=== PATIENT | male | born 1970 | race African-American/Black ===

== ENCOUNTER 2020-09-03 00:18 | Observation (INO) ==
[2020-09-03] MEDS ORDERED: 0.9 % Sodium Chloride 1,000 ML IVC ONE (00:54)
[2020-09-03] MEDS ORDERED: Ondansetron 4 MG/2 ML VIAL IVP ONE ×3 (00:58→04:34)
[2020-09-03 01:06] LABS: Basophils % 0.3 %; Eosinophils # 0.4 K/mcL (0.0-0.6); Eosinophils % 3.5 %; Hematocrit 44.4 % (37.5-50.1); Hemoglobin 14.1 g/dL (12.9-16.9); Immature Granulocytes % 0.5 % (0-4); Lymphocytes # 2.3 K/mcL (0.6-4.6); Mean Corpuscular HGB Conc 31.8 g/dL (31.6-35.5); Mean Corpuscular Hemoglobin 26.4 pg (28.0-33.3); Mean Platelet Volume 10.7 fL (9.4-12.4); Monocytes # 0.5 K/mcL (0.0-1.3); Monocytes % 4.7 %; Neutrophils # 7.6 K/mcL (1.6-8.9); Platelet Count 265 K/mcL (140-400); Red Blood Count 5.35 M/mcL (4.19-5.50); Red Cell Distribution Width 14.2 % (11.5-14.5); White Blood Count 10.8 K/mcL (4.3-11.1)
[2020-09-03 01:15] LABS: Alanine Aminotransferase 10 Units/L (7-52); Albumin 4.2 g/dL (3.5-5.7); Albumin/Globulin Ratio 1.4 (1.1-2.2); Alkaline Phosphatase 60 Units/L (34-104); Aspartate Amino Transferase 12 Units/L (13-39); BUN/Creatinine Ratio 12 (6-26); Bilirubin,Direct 0.1 mg/dL (0.0-0.2); Bilirubin,Indirect 0.4 mg/dL (0.0-1.0); Bilirubin,Total 0.5 mg/dL (0.3-1.0); Blood Urea Nitrogen 13 mg/dL (6-20); Calcium 9.3 mg/dL (8.6-10.3); Carbon Dioxide 22 mEq/L (23-29); Chloride 109 mEq/L (98-107); Globulin 3.1 g/dL (2.4-3.5); Glucose 168 mg/dL (70-105); Lipase 53 Units/L (11-82); Osmolality,Calculated 298 (280-300); Potassium 3.5 mEq/L (3.5-5.1); Sodium 142 mEq/L (136-145); Total Protein 7.3 g/dL (6.4-8.9); eGFR For African Americans > 60 (> 60); eGFR For Non-African Americans > 60 (> 60)
[2020-09-03 01:28] LABS: Bacteria,Urine Few per hpf (None-Few); Bilirubin,Urine Negative (Negative); Blood,Urine Small (Negative); Clarity,Urine Clear (Clear); Color,Urine Yellow (Yellow); Glucose,Urine (UA) 50 mg/dL (Normal); Hyaline Casts,Urine Few per lpf (None Seen); Ketones,Urine Negative (Negative); Leukocyte Esterase,Urine Negative (Negative); Mucus,Urine Many per lpf (None-Few); Nitrite,Urine Negative (Negative); PH,Urine 5.5 pH Units (5.0-8.0); Protein,Urine 50 mg/dL (Neg-Trace); Specific Gravity,Urine > 1.030 (1.010-1.025); Squamous Epithelial Cell,Urine Few per hpf (None-Few); Urobilinogen,Urine Normal (Normal)
[2020-09-03] MEDS ORDERED: Morphine Sulfate 2 MG/ML SYRINGE IVP ONE ×2 (01:36→04:34)
[2020-09-03] MEDS ORDERED: Isovue-370 500 ML BOTTLE IVP ONE (01:55)
[2020-09-03] MEDS ORDERED: Haloperidol Lactate 5 MG/ML VIAL IVP ONE (04:32)
[2020-09-03] MEDS ORDERED: Pantoprazole 80 MG in 0.9 % Sodium Chloride 50 ML IVPB ONE (04:36)
[2020-09-03] MEDS ORDERED: Ondansetron 4 MG/2 ML VIAL IVP PRN (04:52)
[2020-09-03] MEDS ORDERED: Naloxone 0.4 MG/ML INJ IVP PRN (04:52)
[2020-09-03] MEDS ORDERED: 0.9 % Sodium Chloride 1,000 ML IVC SCH (05:00)
[2020-09-03] MEDS ORDERED: Pantoprazole 40 MG VIAL IVP SCH (06:00)
[2020-09-03] MEDS ORDERED: *HR* Promethazine 25 MG/ML VIAL IM PRN (06:35)
[2020-09-03] MEDS ORDERED: niCARdipine 20 MG/200 ML MLS IVC SCH (07:45)
[2020-09-03] MEDS ORDERED: amLODIPine 5 MG TABLET PO SCH (09:00)
[2020-09-03] MEDS ORDERED: hydroCHLOROthiazide 25 MG TABLET PO SCH (09:45)
[2020-09-03 10:49] VITALS: BP 111/76; PULSE 100; TEMP 98.9; O2SAT 96
[2020-09-03] MEDS ORDERED: Ondansetron ODT 4 MG TAB.RAPDIS SL SCH (12:00)
== END 2020-09-03 12:57 | disposition home or self-care (01) ==
LOC: 2ANU 00:18 → EMEROOARM 00:18 → 2ANU 06:09
PROVIDERS: ADMIT Student in an Organized Health Care Education/Training Program; ATTEND Student in an Organized Health Care Education/Training Program